=== PATIENT | male | born 1995 | race Caucasian/White ===

== ENCOUNTER 2022-06-15 10:55 | Day surgery (SDC) | payer BC ==
[~2022-06-15 10:55] MED LIST: Lactated Ringers 1,000 ML IV SCH
[2022-06-15] MEDS ORDERED: Lidocaine 2% 5 ML SDV ONE (12:51)
[2022-06-15] MEDS ORDERED: fentaNYL 100 MCG/2 ML SDV ONE (12:51)
[2022-06-15] MEDS ORDERED: Propofol 200 MG/20 ML SDV ONE (12:51)
== END 2022-06-15 14:35 | disposition home or self-care (01) ==
LOC: MW.SDS 10:55
PROVIDERS: ATTEND Surgery
DX: R19.8 Other specified symptoms and signs involving the digestive system and abdomen (principal); R19.5 Other fecal abnormalities; K29.30 Chronic superficial gastritis without bleeding; F17.220 Nicotine dependence, chewing tobacco, uncomplicated; Z79.899 Other long term (current) drug therapy
CPT/HCPCS: 43239; 45380; J2704; J3010; J7120; 00813